=== PATIENT | male | born 1965 | race Caucasian/White ===

== ENCOUNTER 2016-11-09 14:49 | Emergency (ER) | payer MEDICARE ==
[2015-05-18 02:23] VITALS: BMI 23.0
[~2016-11-09 14:49] MED LIST: DEPAKOTE250 MG PO; DEPAKOTE500 MG PO; HYDROCODONE-APA1 TAB PO; KEPPRA500 MG PO; TOPAMAX100 MG PO
[2016-11-09 16:19] LABS: BASOPHILS 1.8 % (0-2); HEMATOCRIT 42.1 % (42.0-54.0); HEMOGLOBIN 14.3 g/dL (13.5-17.5); IMMATURE GRANULOCYTES 0.3 % (0-5); LYMPHOCYTES 28.2 % (15-50); MCH 33.6 pg (26.0-34.0); MCV 98.8 fL (80.0-100.0); NEUTROPHILS 54.7 % (40-80); PLATELET COUNT 223 10x3/uL (130-400); RBC 4.26 10x6/uL (4.20-6.10); RDW 13.6 % (11.5-14.5); WBC 6.6 10x3/uL (4.8-10.8)
[2016-11-09 16:36] LABS: ALBUMIN 3.6 g/dL (3.4-5.0); ALKALINE PHOSPHATASE 54 U/L (46-116); ALT (SGPT) 28 U/L (10-68); BILIRUBIN - TOTAL 0.42 mg/dL (0.2-1.3); CALC OSMOLALITY 281 mosm/kg (275-300); CALCIUM 8.7 mg/dL (8.5-10.1); CARBON DIOXIDE 22.8 mmol/L (21.0-32.0); CHLORIDE - SERUM 106 mmol/L (98-107); CREATININE - SERUM 1.1 mg/dL (0.6-1.3); GLUCOSE 98 mg/dL (74-106); POTASSIUM - SERUM 4.5 mmol/L (3.5-5.1); SODIUM 141 mmol/L (136-145); UREA NITROGEN 14 mg/dL (7-18); eGFR NON AFRICAN AMERICAN 75 mL/min (90-120)
[2016-11-09 16:49] LABS: APPEARANCE HAZY (CLEAR); BILIRUBIN NEGATIVE (NEGATIVE); COLOR YELLOW (YELLOW); GLUCOSE NEGATIVE (NEGATIVE); KETONE NEGATIVE (NEGATIVE); LEUKOCYTE ESTERASE NEGATIVE (NEGATIVE); NITRITE NEGATIVE (NEGATIVE); PROTEIN NEGATIVE (NEGATIVE); UROBILINOGEN NORMAL (NORMAL)
[2016-11-09 17:22] LABS: UDS - AMPHET NEGATIVE QUAL (NEGATIVE); UDS - BARB NEGATIVE QUAL (NEGATIVE); UDS - BENZO NEGATIVE QUAL (NEGATIVE); UDS - COCAINE NEGATIVE QUAL (NEGATIVE); UDS - METH NEGATIVE QUAL (NEGATIVE); UDS - OPIATE NEGATIVE QUAL (NEGATIVE); UDS - PCP NEGATIVE QUAL (NEGATIVE); UDS - THC POSITIVE QUAL (NEGATIVE)
== END 2016-11-09 22:30 | disposition home or self-care (01) ==
LOC: D.ER 14:49
PROVIDERS: Emergency Medicine; Nurse Practitioner Family
DX: Z91.14 Patient's other noncompliance with medication regimen (principal); G40.909 Epilepsy, unspecified, not intractable, without status epilepticus; Z95.0 Presence of cardiac pacemaker; R00.1 Bradycardia, unspecified